=== PATIENT | male | born 1995 | race African-American/Black ===

== ENCOUNTER 2017-09-24 09:54 | Emergency (ER) | payer SELFPAY ==
[~2017-09-24] VITALS: Ht 175.3 cm; Wt 90.7 kg
[2017-09-24] MEDS ORDERED: ZITHROMAX250 MG ORAL (10:36)
[2017-09-24] MEDS ORDERED: IBUPROFEN600 MG ORAL (10:37)
[2017-09-24 10:45] VITALS: BP 120/76
[2017-09-24 10:47] VITALS: BP 120/76
--- NOTE | 2017-09-24 10:54 | Emergency Room Report ---
History of Present Illness General Chief Complaint: Flu Like Symptoms Source: Patient Present Illness HPI Patient presents emergency department today complaining of sore throat. Patient states that he has painful swallowing. He also has sinus congestion. Symptoms haven't gone for a few days. He has subjective fevers and chills at home. Symptoms noted to be moderate.No other modifying factors. No other associated signs and symptoms. No other complaints were noted. Allergies: Coded Allergies: PENICILLINS (Verified Allergy, Unknown, 09/24/17) Patient History Past Medical History: none Past Surgical History: none Pertinent Family History: none Social History: Denies: smoking, alcohol use, drug use Reviewed Nursing Documentation: PMH: Agreed; PSxH: Agreed Nursing Documentation-PMH Past Medical History: No Stated History Review of Systems All Other Systems: negative except mentioned in HPI Physical Exam Vital Signs Date Time Temp Pulse Resp B/P (MAP) Pulse Ox O2 Delivery O2 Flow Rate FiO2 09/24/17 09:57 98.0 84 20 116/69 99 Room Air 98.1 Sp02 EP Interpretation: reviewed, normal General Appearance: normal inspection, well appearing, no apparent distress, alert Head: atraumatic Eyes: bilateral eye normal inspection ENT: hearing grossly normal, normal voice, tonsillar swelling, pharyngeal erythema, tonsillar exudate Neck: normal inspection, full range of motion, supple, no bony tend Respiratory: normal inspection, lungs clear, normal breath sounds, no respiratory distress, no retraction, no wheezing Cardiovascular #1: regular rate, rhythm, no edema Gastrointestinal: normal inspection, normal bowel sounds, non tender, soft, no guarding, no hernia Genitourinary: no CVA tenderness Musculoskeletal: normal inspection, back normal, normal range of motion Neurologic: normal inspection, alert, responsive, speech normal Psychiatric: normal inspection, judgement/insight normal, mood/affect normal Skin: normal inspection, normal color, no rash Medical Decision Making Diagnostic Impression: Primary Impression: Acute bacterial pharyngitis ER Course Patient presents in emergency department today complaining of a sore throat. Differential diagnoses include pharyngitis, pneumonia, viral syndrome, sinusitis just name a few. Exam is fairly benign but there is evidence of sinus sinus or pharyngitis. Upon the patient would benefit from antibiotics. Patient was given prescription for Zithromax.Patient is advised to follow up with primary doctor in 2-3 days and return the emergency room for any worsening symptoms and as needed. Last Vital Signs Date Time Temp Pulse Resp B/P (MAP) Pulse Ox O2 Delivery O2 Flow Rate FiO2 09/24/17 09:57 98.0 84 20 116/69 99 Room Air 98.1 Status: improved Disposition: HOME, SELF-CARE Condition: Stable Scripts Ibuprofen* (MOTRIN*) 600 Mg Tablet 600 MG ORAL Q8H PRN for For Pain, #15 TAB 0 Refills Prov: PARRISH MANLEY M.D. 09/24/17 Azithromycin* (ZITHROMAX*) 250 Mg Tablet 250 MG ORAL DAILY, #6 TAB 0 Refills Take two tables once daily for 1 day, then one tablet once daily for 4 days. Prov: PARRISH MANLEY M.D. 09/24/17 Patient Instructions: Pharyngitis, [id number] PARRISH MANLEY M.D. September 24, 2017 10:54
== END 2017-09-24 11:21 | disposition home or self-care (01) ==
LOC: EMR 10:53
DX: J02.9 Acute pharyngitis, unspecified (principal); B96.89 Other specified bacterial agents as the cause of diseases classified elsewhere; Z88.0 Allergy status to penicillin
CPT/HCPCS: 99284